=== PATIENT | male | born 1970 ===

== ENCOUNTER 2024-04-22 12:21 | Emergency (ER) | payer BC ==
--- OUTSIDE RECORDS SUMMARY | 2024-04-22 12:24 | XMS REPORT | Continuity of Care Document ---
Author Name Unknown Address [address] [facility] [place] [address] [facility] Address [address] [facility] [place] [address] Care Team Providers Care Slasher Sawyer Name Role Phone FLACO HILLIARD Attending Clinician Unavailable EDITH BENAVIDES Attending Clinician Unavailable GILLIAN KOHLI Attending Clinician Unavailable LAB90 Attending Clinician Unavailable KEYANNA VILLATORO Attending Clinician UnaKELY Shipman Attending Clinician Unavailable [facility] Attending Clinician UnavailSUJIT Todd Attending Clinician Unavailable Shauna TREVINO, Keyanna Foster Attending Clinician [phone] MD YOJANA Attending Clinician UnavailMATA Mayberry Attending Clinician UnavailELAINA Kwan Attending Clinician Unavailable Payers Payer Name Policy Type Policy Number Effective Date Expirati on Date Source [facility] 2 [id number] 2020 00:00:00 Problems Condition Name Condition Details Condition Category Status Onset Date Resolution Date Last Treatment Date Treating Clinician Comments Source Lateral epicondyli tis of right elbow Lateral epicondyli tis of right elbow Disease Active - 00:00: 00 Brandie Mezaold - Externa l Acute non-recurr ent maxillary sinusitis Acute non-recurr ent maxillary sinusitis Disease Active 2021-03 2 00:00: 00 Brandie Mezaold - Externa l Dizziness Dizziness Disease Active 2021-03-08 00:00: 00 Brandie Seybold - Externa l Prediabete s Prediabete s Disease Active 2021-03 00:00: 00 Brandie Mezaold - Externa l Seasonal allergic rhinitis due to pollen Seasonal allergic rhinitis due to pollen Disease Active 2021-03 00:00: 00 Brandie Spicerybold - Externa l Diastasis recti Diastasis recti Disease Active 2021-03 00:00: 00 Brandie Cummins - Externa l Class 2 severe obesity due to excess calories with serious comorbidit y and body mass index (BMI) of 37.0 to 37.9 in adult Class 2 severe obesity due to excess calories with serious comorbidit y and body mass index (BMI) of 37.0 to 37.9 in adult Disease Active 2021-03 00:00: 00 Brandie Mezaold - Externa l GERD (gastroeso phageal reflux disease) GERD (gastroeso phageal reflux disease) Disease Active 07-04 00:00: 00 Brandie Cummins - Externa l Essential hypertensi on Essential hypertensi on Disease Active 07-04 00:00: 00 Brandie Cummins - Externa l Snoring Snoring Disease Active 07-04 00:00: 00 Brandie Mezaold - Externa l Obesity (BMI 30-39.9) Obesity (BMI 30-39.9) Disease Active 07-04 00:00: 00 Brandie Mezaold - Externa l Hiatal hernia with GERD Hiatal hernia with GERD Disease Active 07-04 00:00: 00 Brandie Cummins - Externa l Annual physical exam Annual physical exam Disease Active 07-04 00:00: 00 Brandie Cummins - Externa l Social History Social Habit Start Date Stop Date Quantity Comments Source Gender identity 2020-09-05 17:28:14 Identifies as male gender (finding) Brandie Cummins - External Sexual orientation Kristi Cummins - External History of tobacco use Cigarette Smoker Brandie billy - External Alcoholic beverage intake 2024-03-26 00:00:00 2024-03-26 00:00:00 Current drinker of alcohol (finding) Brandie Cummins - External Tobacco use and exposure 2023-06-21 00:00:00 2023-06-21 00:00:00 Smokeless tobacco non-user Brandie Susanawenceslao - External Alcohol intake 2023-06-21 00:00:00 2023-06-21 00:00:00 Current drinker of alcohol (finding) Brandie Spicerleonardowenceslao - External Alcohol Comment 2023-06-21 00:00:00 2023-06-21 00:00:00 social Brandie Spicernayely - External History of Social function 2022-10-25 00:00:00 2022-10-25 00:00:00 Brandie Spicerleonardowenceslao - External Sex 2020-06-17 17:28:28 2020-06-17 17:28:28 Male (finding) Brandie Spicernayely - External Sex [birth year] at 1970 00:00:00 1970 00:00:00 M Brandie Maria G - External Smoking Status Start Date Stop Date Source Ex-smoker 2023-06-21 00:00:00 2023-06-21 00:00:00 Kristi cope Seleonardowenceslao - External Medications Ordered Medication Name Filled Medication Name Start Date Stop Date Current Medication? Ordering Clinician Indication Dosage Frequency Signature (SIG) Comments Components Source Pantoprazol e Sodium 40 MG oral Tablet Delayed Response 03-26 00:00: 00 Yes [id number] 40mg QD TAKE ONE (1) TABLET(S) BY MOUTH ONCE A DAY. Brandie jackson guaiFENesin -Codeine 100-10 MG/5ML oral Solution 03-26 00:00: 00 Yes [id number] 5mL Q.[id number] 3D Take 5 mL by mouth 3 times daily as needed for cough. Brandie jackson Benzonatate 200 MG oral Capsule 03-26 00:00: 00 Yes [id number] 200mg Q.[id number] 3D Take 1 capsule (200 mg total) by mouth 3 times daily as needed for cough. Brandie jackson methylPREDN ISolone 4 MG oral Tablet Therapy Pack 03-26 00:00: 00 Yes [id number] 1{judy} Take 1 judy by mouth See Admin Instructio ns Use as directed. Brandie jackson Azithromyci n 250 MG oral Tablet - 00:00: 00 04-01 05:59 :00 Yes [id number] Take 2 tablets by mouth on day 1 then 1 tablet by mouth daily for 4 days thereafter .. Brandie jackson Aprepitant 40 MG oral Capsule 2023-03 0-24 00:00: 00 03-26 00:00 :00 No TAKE ONE (1) CAPSULE(S) BY MOUTH 3 HOURS PRIOR TO SURGERY. Brandie jackson Constulose 10 GM/15ML oral Solution 2023-03 0 00:00: 00 03-26 00:00 :00 No TAKE 15 ML(S) BY MOUTH TWICE DAILY NEEDED FOR CONSTIPATI ON. Brandie jackson Ondansetron (ZOFRAN) 4 MG oral TABLET DISPERSIBLE 2023-03 00:00: 00 03-26 00:00 :00 No DISSOLVE ONE (1) TABLET(S) BY MOUTH EVERY FOUR TO SIX HOURS NEEDED FOR NAUSEA. Brandie jackson Tramadol HCl (ULTRAM) 50 MG oral Tablet 2023-03 00:00: 00 03-26 00:00 :00 No TAKE ONE (1) TABLET BY MOUTH EVERY 4-6 HOURS NEEDED FOR PAIN (MAX 4 DAILY). Brandie jackson Pantoprazol e Sodium 40 MG oral Tablet Delayed Response 7- 00:00: 00 03-26 00:00 :00 No [id number] 40mg QD Take 1 tablet (40 mg total) by mouth daily. Brandie jackson Pantoprazol e Sodium 40 MG oral Tablet Delayed Response 4-17 00:00: 00 Yes [id number] 40mg Take 1 tablet (40 mg total) by mouth daily. Brandie jackson Tirzepatide -Weight Management 2.5 MG/0.5ML subcutaneou s Solution Auto-inject or 4-17 00:00: 00 03-26 00:00 :00 No [id number] 104 2.5mg Q1W Inject 0.5 mL (2.5 mg total) into the skin once a week. Brandie jackson Lisinopril 20 MG oral Tablet 17 00:00: 00 03-26 00:00 :00 No [id number] 20mg QD Take 1 tablet (20 mg total) by mouth daily. Brandie jackson Lisinopril 20 MG oral Tablet -16 00:00: 00 07-05 00:00 :00 No [id number] 20mg Take 1 tablet (20 mg total) by mouth daily. Brandie jackson Lansoprazol e 30 MG oral Delayed Release Capsule 3-15 00:00: 00 07-05 00:00 :00 No [id number] 30mg Take 1 capsule (30 mg total) by mouth daily. Brandie jackson Semaglutide -ELI-Stevie ght Management 1 MG/0.5ML Subcutaneou s Solution Auto-inject or - 00:00: 00 07-03 00:00 :00 No [id number] 1mg Inject 1 mg into the skin once a week Brandie jackson Pseudoeph-B romphen-DM 30-2-10 MG/5ML oral Syrup 09-13 00:00: 00 Yes [id number] 10mL Q.25D Take 10 mL by mouth 4 times daily as needed Brandie jackson Azithromyci n 250 MG oral Tablet 09-13 00:00: 00 09-19 04:59 :00 No [id number] Take 2 tablets by mouth on day 1 then 1 tablet by mouth daily for 4 days thereafter . Brandie jackson Semaglutide -WEGOVY-Stevie ght Management 1 MG/0.5ML Subcutaneou s Solution Auto-inject or 12 00:00: 00 Yes [id number] 104 1mg Inject 1 mg into the skin once a week Brandie jackson Semaglutide (1 mg/dose) 4 mg/3 mL SQ Solution Pen-Injecto r 06-22 00:00: 00 Yes [id number] 104 1mg Inject 1 mg into the skin once a week Brandie jackson Lansoprazol e 30 MG oral Delayed Release Capsule 06-22 00:00: 00 Yes [id number] 30mg Take 1 capsule (30 mg total) by mouth daily Brandie jackson Lisinopril 20 MG oral Tablet 06-22 00:00: 00 07-04 00:00 :00 No [id number] 20mg Take 1 tablet (20 mg total) by mouth daily Brandie jackson Lansoprazol e 30 MG oral Delayed Release Capsule 2021-03 00:00: 00 06-22 00:00 :00 No 30mg Take 1 capsule (30 mg total) by mouth daily Brandie jackson Semaglutide (0.25 or 0.5 mg/dose) 2 mg/1.5 mL SQ Solution Pen-Injecto r 2021-03 00:00: 00 Yes [id number] 104 .5mg Inject 0.5 mg into the skin once a week Brandie jackson Semaglutide (0.25 or 0.5 mg/dose) 2 mg/1.5 mL SQ Solution Pen-Injecto r 2021-03 00:00: 00 06-22 00:00 :00 No [id number] 104 .5mg Inject 0.5 mg into the skin once a week Brandie jackson Amoxicillin -Pot Clavulanate 875-125 MG oral Tablet 2021-03 00:00: 00 06-21 00:00 :00 No [id number] 1{tbl} Take 1 tablet by mouth 2 times daily Brandie jackson Benzonatate (Tessalon Perles) 100 MG oral Capsule 2021-03 00:00: 00 06-21 00:00 :00 No [id number] 100mg Q.[id number] 3D Take 1 capsule (100 mg total) by mouth 3 times daily as needed for cough Brandie jackson Tramadol HCl 50 MG oral Tablet 2021-03 00:00: 00 06-21 00:00 :00 No TAKE ONE (1) TO TWO (2) TABLET(S) BY MOUTH EVERY SIX HOURS FOR PAIN. Brandie jackson Semaglutide (0.25 or 0.5 mg/dose) 2 mg/1.5 mL SQ Solution Pen-Injecto r 2021-03 00:00: 00 Yes [id number] 104 .25mg Inject 0.25 mg into the skin once a week Brandie jackson Lisinopril 20 MG oral Tablet 2021-03 00:00: 00 06-22 00:00 :00 No [id number] 20mg Take 1 tablet (20 mg total) by mouth daily Brandie jackson FLUTICASONE PROPIONATE, NASAL, 50 MCG/ACT nasal Suspension 2021-03 00:00: 00 06-22 00:00 :00 No [id number] 50ug Use 1 spray (50 mcg total) in each nostril daily Brandie jackson Fexofenadin e (MINNIE) 180 MG oral Tablet 2021-03 00:00: 00 06-21 00:00 :00 No [id number] 180mg Take 1 tablet (180 mg total) by mouth daily Brandie jackson Semaglutide (0.25 or 0.5 mg/dose) 2 mg/1.5 mL SQ Solution Pen-Injecto r 2021-03 00:00: 00 02-23 00:00 :00 No [id number] 104 .25mg Inject 0.25 mg into the skin once a week Brandie jackson LISINOPRIL- HCTZ 20-12.5 MG oral Tablet 2021-03 00:00: 00 01-26 00:00 :00 No TAKE 1 TABLET BY MOUTH EVERY DAY Brandie jackson Lansoprazol e 30 MG oral Delayed Release Capsule 09-28 00:00: 00 Yes TAKE 1 CAPSULE BY MOUTH EVERY DAY Brandie jackson Amoxicillin -Pot Clavulanate 875-125 MG oral Tablet 2020-03 0-22 00:00: 00 Yes [id number] 1{tbl} Take 1 tablet by mouth 2 times daily Brandie Cummins Etodolac 500 MG oral Tablet 2020-03 0-12 00:00: 00 Yes Brandie Cummins methylPREDN ISolone 4 MG oral Tablet Therapy Pack 2020-03 0-11 00:00: 00 Yes Brandie Cummins LISINOPRIL- HCTZ 20-12.5 MG oral Tablet 8-30 00:00: 00 Yes TAKE 1 TABLET BY MOUTH EVERY DAY Brandie Cummins Lansoprazol e 30 MG oral Delayed Release Capsule 6-07 00:00: 00 Yes 30mg Take 1 capsule (30 mg total) by mouth daily Brandie Cummins Immunizations Ordered Immunization Name Filled Immunization Name Date Status Comments Source Covid-19 Vaccine ([email or web address]), Mrna-lnp, Ned Protein, Pf, 30mcg/0.3ml,IM 2020-06-07 00:00:00 Completed Brandie Cummins - External Covid-19 Vaccine ([email or web address]), Mrna-lnp, Ned Protein, Pf, 30mcg/0.3ml,IM 2020-06-07 00:00:00 [facility] Vacc[facility] ([email or web address]), Mrna-lnp, Ned Protein, Pf, 30mcg/0.3ml,IM 2020-06-07 00:00:00 [facility] Covid-19 Vaccine ([email or web address]), Mrna-lnp, Ned Protein, Pf, 30mcg/0.3ml,IM 2020-06-07 00:00:00 Completed Brandie Cummins Covid-19 Vaccine ([email or web address]), Mrna-lnp, Ned Protein, Pf, 30mcg/0.3ml,IM 2020-06-07 00:00:00 Completed Brandie [facility] - External Covid-19 Vaccine ([email or web address]), Mrna-lnp, Ned Protein, Pf, 30mcg/0.3ml,IM 2020-06-07 00:00:00 [facility] Vacc[facility] ([email or web address]), Mrna-lnp, Ned Protein, Pf, 30mcg/0.3ml,IM 2020-05-17 00:00:00 Completed Brandie Seybold - External Covid-19 Vaccine (Pfizer), Mrna-lnp, Ned Protein, Pf, 30mcg/0.3ml,IM 2020-05-17 00:00:00 Completed Brandie Seybold - External Covid-19 Vaccine (Pfizer), Mrna-lnp, Ned Protein, Pf, 30mcg/0.3ml,IM 2020-05-17 00:00:00 Completed Brandie Seybold - External Covid-19 Vaccine (Pfizer), Mrna-lnp, Ned Protein, Pf, 30mcg/0.3ml,IM 2020-05-17 00:00:00 Completed Brandie Seybold Covid-19 Vaccine (Pfizer), Mrna-lnp, Ned Protein, Pf, 30mcg/0.3ml,IM 2020-05-17 00:00:00 Completed Brandie Seybold - External Covid-19 Vaccine (Pfizer), Mrna-lnp, Ned Protein, Pf, 30mcg/0.3ml,IM 2020-05-17 00:00:00 Completed Brandie Seybold - External Covid-19 Vaccine (Pfizer), Mrna-lnp, Ned Protein, Pf, 30mcg/0.3ml,IM 2020-05-02 00:00:00 Completed Brandie Seybold - External Covid-19 Vaccine (Pfizer), Mrna-lnp, Ned Protein, Pf, 30mcg/0.3ml,IM 2020-05-02 00:00:00 Completed Brandie Seybold - External Covid-19 Vaccine (Pfizer), Mrna-lnp, Ned Protein, Pf, 30mcg/0.3ml,IM 2020-05-02 00:00:00 Completed Brandie Seybold - External Covid-19 Vaccine (Pfizer), Mrna-lnp, Ned Protein, Pf, 30mcg/0.3ml,IM 2020-05-02 00:00:00 Completed Brandie Seybold Covid-19 Vaccine (Pfizer), Mrna-lnp, Ned Protein, Pf, 30mcg/0.3ml,IM 2020-05-02 00:00:00 Completed Brandie Seybold - External Covid-19 Vaccine (Pfizer), Mrna-lnp, Ned Protein, Pf, 30mcg/0.3ml,IM 2020-05-02 00:00:00 Completed Brandie Seybold - External Tdap- (Boostrix, Adacel) 2017-05-12 00:00:00 Completed Brandie Seybold - External Tdap- (Boostrix, Adacel) 2017-05-12 00:00:00 Completed Brandie Seybold - External Tdap- (Boostrix, Adacel) 2017-05-12 00:00:00 Completed Brandie Seybold - External Tdap- (Boostrix, Adacel) 2017-05-12 00:00:00 Completed Brandie ybold Tdap- (Boostrix, Adacel) 2017-05-12 00:00:00 Completed Brandie Seybold - External Tdap- (Boostrix, Adacel) 2017-05-12 00:00:00 Completed Brandie leonardoold - External Covid-19 Vaccine ([email or web address]), Mrna-lnp, Ned Protein, Pf, 30mcg/0.3ml,IM Unknown Completed Brandie ybol d - External Tdap- (Boostrix, Adacel) Unknown Completed Brandie ybold - External Covid-19 Vaccine (Pfizer), Mrna-lnp, Ned Protein, Pf, 30mcg/0.3ml,IM Unknown Completed Brandie ybol d - External Tdap- (Boostrix, Adacel) Unknown Completed Brandie ybold - External Covid-19 Vaccine ([email or web address]), Mrna-lnp, Ned Protein, Pf, 30mcg/0.3ml,IM Unknown Completed Brandie ybol d - External Tdap- (Boostrix, Adacel) Unknown Completed Brandie ybold - External Vital Signs Vital Name Observation Time Observation Value Comments S ource Systolic blood pressure 2024-03-26 21:58:00 134 mm[Hg] Brandie Rocha ld - External Diastolic blood pressure 2024-03-26 21:58:00 80 mm[Hg] Brandie Rocha ld - External Heart rate 2024-03-26 21:58:00 74 /min Ivanna Cummins - External Body temperature 2024-03-26 21:58:00 36 Zaria Brandie Seybold - External Respiratory rate 2024-03-26 21:58:00 15 /min Brandie Seybold - External Body height 2024-03-26 21:58:00 182.9 cm Lucrecia ey Seybold - External Body weight 2024-03-26 21:58:00 104.599 kg Lucrecia ey Seybold - External BMI 2024-03-26 21:58:00 31.27 kg/m2 Lucrecia ey Seybold - External Oxygen saturation in Arterial blood by Pulse oximetry 2024-03-26 21:58:00 99 /min Brandie Seybo ld - External Systolic blood pressure 2023-07-06 16:14:00 122 mm[Hg] Brandie Seybo ld - External Diastolic blood pressure 2023-07-06 16:14:00 65 mm[Hg] Brandie Seybo ld - External Heart rate 2023-07-06 16:14:00 90 /min Kelse y Seybold - External Body temperature 2023-07-06 16:14:00 36.06 Zaria Brandie Seybold - External Respiratory rate 2023-07-06 16:14:00 22 /min Brandie Seybold - External Body height 2023-07-06 16:14:00 182.9 cm Lucrecia ey Seybold - External Body weight 2023-07-06 16:14:00 127.007 kg Lucrecia ey Seybold - External BMI 2023-07-06 16:14:00 37.97 kg/m2 Lucrecia ey Seybold - External Oxygen saturation in Arterial blood by Pulse oximetry 2023-07-06 16:14:00 97 /min Brandie Seybo ld - External Systolic blood pressure 2022-10-25 19:49:00 120 mm[Hg] Brandie Seybo ld - External Diastolic blood pressure 2022-10-25 19:49:00 85 mm[Hg] Brandie Seybo ld - External Heart rate 2022-10-25 19:49:00 71 /min Kelse y Seybold - External Body temperature 2022-10-25 19:49:00 35.94 Zaria Brandie Seybold - External Respiratory rate 2022-10-25 19:49:00 15 /min Brandie Seybold - External Body height 2022-10-25 19:49:00 182.9 cm Lucrecia ey Seybold - External Body weight 2022-10-25 19:49:00 121.564 kg Lucrecia ey Seybold - External BMI 2022-10-25 19:49:00 36.35 kg/m2 Lucrecia ey Seybold - External Oxygen saturation in Arterial blood by Pulse oximetry 2022-10-25 19:49:00 100 /min Brandie Seybo ld - External Systolic blood pressure 2022-09-13 13:23:00 134 mm[Hg] Brandie Seybo ld - External Diastolic blood pressure 2022-09-13 13:23:00 79 mm[Hg] Brandie Seybo ld - External Heart rate 2022-09-13 13:23:00 87 /min Kelse y Seybold - External Body temperature 2022-09-13 13:23:00 37.06 Zaria Brandie Seybold - External Respiratory rate 2022-09-13 13:23:00 14 /min Brandie Seybold - External Body height 2022-09-13 13:23:00 182.9 cm Lucrecia ey Seybold - External Body weight 2022-09-13 13:23:00 120.657 kg Lucrecia ey Seybold - External BMI 2022-09-13 13:23:00 36.08 kg/m2 Lucrecia ey Seybold - External Oxygen saturation in Arterial blood by Pulse oximetry 2022-09-13 13:23:00 99 /min Brandie Seybo ld - External Systolic blood pressure 2022-06-22 15:46:00 122 mm[Hg] Brandie Seybo ld - External Diastolic blood pressure 2022-06-22 15:46:00 84 mm[Hg] Brandie Seybo ld - External Heart rate 2022-06-22 15:46:00 87 /min Kelse y Seybold - External Body temperature 2022-06-22 15:46:00 36.06 Zaria Brandie Seybold - External Respiratory rate 2022-06-22 15:46:00 14 /min Brandie Seybold - External Body height 2022-06-22 15:46:00 182.9 cm Lucrecia ey Seybold - External Body weight 2022-06-22 15:46:00 120.929 kg Lucrecia ey Seybold - External BMI 2022-06-22 15:46:00 36.16 kg/m2 Lucrecia ey Seybold - External Oxygen saturation in Arterial blood by Pulse oximetry 2022-06-22 15:46:00 98 /min Brandie Seybo ld - External Body temperature 2022-02-23 16:02:00 36.5 Zaria Brandie Seybold - External Respiratory rate 2022-02-23 16:02:00 16 /min Brandie Seybold - External Body height 2022-02-23 16:02:00 182.9 cm Lucrecia ey Seybold - External Body weight 2022-02-23 16:02:00 120.203 kg Lucrecia ey Seybold - External BMI 2022-02-23 16:02:00 35.94 kg/m2 Lucrecia ey Seybold - External Systolic blood pressure 2022-02-23 16:02:00 118 mm[Hg] Brandie Seybo ld - External Diastolic blood pressure 2022-02-23 16:02:00 78 mm[Hg] Brandie Seybo ld - External Heart rate 2022-02-23 16:02:00 114 /min Germanse y Seybold - External Systolic blood pressure 2022-01-26 16:43:00 115 mm[Hg] Brandie Seybo ld - External Diastolic blood pressure 2022-01-26 16:43:00 73 mm[Hg] Brandie Seybo ld - External Heart rate 2022-01-26 16:43:00 91 /min Kelse y Seybold - External Body temperature 2022-01-26 16:43:00 36.11 Zaria Brandie Seybold - External Respiratory rate 2022-01-26 16:43:00 14 /min Brandie Seybold - External Body height 2022-01-26 16:43:00 182.9 cm Lucrecia ey Seybold - External Body weight 2022-01-26 16:43:00 121.836 kg Lucrecia ey Seybold - External BMI 2022-01-26 16:43:00 36.43 kg/m2 Lucrecia ey Seybold - External Oxygen saturation in Arterial blood by Pulse oximetry 2022-01-26 16:43:00 99 /min Brandie Seybo ld - External Systolic blood pressure 2021-01-09 13:47:00 130 mm[Hg] Brandie Mezao ld Diastolic blood pressure 2021-01-09 13:47:00 80 mm[Hg] Brandie Mezao ld Heart rate 2021-01-09 13:47:00 86 /min Ivanna Cummins Body temperature 2021-01-09 13:47:00 37.06 Zaria Brandie Cummins Body weight 2021-01-09 13:47:00 120.657 kg Lucrecia Cummins BMI 2021-01-09 13:47:00 36.08 kg/m2 Lucrecia Mezawenceslao Procedures Procedure Date / Time Performed Performing Clinicia n Source LS RAPID FLU ASSAY-LAB TEST 2024-03-26 22:29:00 Flaco Hilliard - External Encounters Start Date/Time End Date/Time Encounter Type Admission Type Attending [facility] Care Department Encounter ID Source 2024-03-26 16:00:00 2024-03-26 16:00:00 Outpatient FLACO HILLIARD [id number] Brandie Susanawenceslao 2024-03-26 00:00:00 2024-03-26 00:00:00 Outpatient EDITH BENAVIDES [id number] Brandie wenceslao 2023-10-09 00:00:00 2023-10-09 00:00:00 Outpatient EDITH BENAVIDES [id number] Brandie nayely 2023-09-28 14:45:00 2023-09-28 14:45:00 Outpatient EDITH BENAVIDES [id number] Brandie wenceslao 2023-08-22 00:00:00 2023-08-22 00:00:00 Outpatient GILLIAN KOHLI [id number] Brandie ybwenceslao 2023-07-08 00:00:00 2023-07-08 00:00:00 Outpatient EDITH BENAVIDES [id number] Brandie ybwenceslao 2023-07-08 00:00:00 2023-07-08 00:00:00 Outpatient EDITH BENAVIDES [id number] Brandie [facility] 2023-07-08 00:00:00 2023-07-08 00:00:00 Outpatient PREZAEDITH Mantilla BRANDIE LORD [id number] Brandie Spicerybwenceslao 2023-07-07 10:10:00 2023-07-07 10:10:00 Outpatient LAB90 BRANDIE LORD [id number] Brandie Spicerybwenceslao 2023-07-06 11:15:00 2023-07-06 11:15:00 Outpatient PREZAAnnalee, EDITH BRANDIE LORD [id number] Brandie Spicerybwenceslao 2023-07-05 00:00:00 2023-07-05 00:00:00 Outpatient PREZAS, EDITH BRANDIE LORD [id number] Brandie Spicerybwenceslao 2023-06-30 14:45:00 2023-06-30 14:45:00 Outpatient SHAUNA, KEYANNAVARSHA LORD [id number] Brandie Spicerybwenceslao 2023-06-24 00:00:00 2023-06-24 00:00:00 Outpatient REN, KELY BRANDIE LORD [id number] [facility] 2023-06-23 00:00:00 2023-06-23 00:00:00 Outpatient REN, KELYRema LORD [id number] [facility] 2023-06-22 08:10:00 2023-06-22 08:10:00 Outpatient LABBrady BRANDIE LORD [id number] Brandie Spicerybwenceslao 2023-06-22 08:00:00 2023-06-22 08:00:00 Outpatient HUMBERTORODY BRANDIE LORD [id number] [facility] 2023-06-22 00:00:00 2023-06-22 00:00:00 Outpatient REN, KELY LORD [id number] [facility] 2023-06-21 14:00:00 2023-06-21 14:00:00 Outpatient REN, KELY LORD [id number] [facility] 2023-06-03 00:00:00 2023-06-03 00:00:00 Outpatient PREZAS, EDITH LORD [id number] [facility] 2023-05-20 11:00:00 2023-05-20 11:00:00 Outpatient PREZAS, EDITH LORD BRANDIE [id number] Brandie [facility] 2023-04-10 00:00:00 2023-04-10 00:00:00 Outpatient PREZAS, EDITH LORD BRANDIE [id number] Brandie [facility] 2022-12-03 00:00:00 2022-12-03 00:00:00 Outpatient PREZAS, EDITH LORD BRANDIE [id number] [facility] 2022-10-25 14:30:00 2022-10-25 14:30:00 Outpatient PREZAS, EDITH LORD BRANDIE [id number] Brandie [facility] 2022-09-22 08:15:00 2022-09-22 08:15:00 Outpatient PREZAS, EDITH LORD BRANDIE [id number] [facility] 2022-09-13 08:15:00 2022-09-13 08:15:00 Outpatient SHAUNAMATEUS BENNETTVARSHA LORD BRANDIE [id number] [facility] 2022-08-30 00:00:00 2022-08-30 00:00:00 Outpatient PREZAS, EDITH LORD BRANDIE [id number] [facility] 2022-08-30 00:00:00 2022-08-30 00:00:00 Outpatient PREZAS, EDITH LORD BRANDIE [id number] [facility] 2022-06-24 00:00:00 2022-06-24 00:00:00 Outpatient PREZAS, EDITH LORD BRANDIE [id number] [facility] 2022-06-22 11:20:00 2022-06-22 11:20:00 Outpatient LABBrady BRANDIE LORD [id number] [facility] 2022-06-22 10:45:00 2022-06-22 10:45:00 Outpatient PREZAS, EDITH LORD BRANDIE [id number] [facility] 2022-03-23 10:00:00 2022-03-23 10:00:00 Outpatient PREZAS, EDITH BRANDIE LORD [id number] [facility] 2022-03-09 00:00:00 2022-03-09 00:00:00 Outpatient SUJIT MALONEYDANGELO LORD [id number] [facility] 2022-02-23 10:15:00 2022-02-23 10:15:00 Outpatient PREZAEDITH Mantilla BRANDIE [id number] [facility] 2022-02-23 08:15:00 2022-02-23 08:15:00 Outpatient PREZAEDITH MantillaDANGELO LORD [id number] [facility] 2022-02-09 08:45:00 2022-02-09 08:45:00 Outpatient LAB90 BRANDIE BRANDIE [id number] [facility] 2022-02-04 13:35:00 2022-02-04 13:35:00 Outpatient LAB90 BRANDIE LORD [id number] [facility] 2022-01-26 10:45:00 2022-01-26 10:45:00 [facility]DANGELO [facility] [id number] [facility]00 2022-01-26 09:00:00 Outpatient PREZAS, EDITH COOPERDANGELO LORD [id number] [facility]ie [facility] 2021-04-21 00:00:00 2021-04-21 00:00:00 Outpatient SUJIT MALONEY BRANDIE LORD [id number] [facility] 2021-03-23 14:15:00 2021-03-23 14:15:00 Outpatient SHAUNAKEYANNA [id number] Brandie [facility] 2021-03-23 14:15:00 2021-03-23 14:15:00 Outpatient SHAUNAKEYANNA [id number] Brandie [facility] 2021-01-09 08:43:50 2021-01-09 09:13:50 Office Visit Keyanna Villatoro [place] [id number] Brandie [facility] 2020-12-29 00:00:00 2020-12-29 00:00:00 Outpatient MD BRANDIE FORTUNE [id number] Brandie Cummins 2020-11-07 00:00:00 2020-11-07 00:00:00 Outpatient MATA SEGAL [id number] Brandie Cummins 2020-10-23 08:30:00 2020-10-23 08:30:00 Outpatient MATA SEGAL [id number] Brandie Cummins 2020-07-24 00:00:00 2020-07-24 00:00:00 Outpatient ELAINA ADRIAN [id number] Brandie Cummins
--- NOTE | 2024-04-22 13:20 | RAD REPORT ---
EXAMINATION: CT ABDOMEN AND PELVIS stone protocol WITHOUT CONTRAST CLINICAL INDICATION: Male, 54 years old.FLANK PAIN TECHNIQUE: CT abdomen and pelvis was performed with stone protocol, without IV contrast, as per depar tment protocol. Axial, sagittal and coronal reconstructions were obtained. One or more of the following dose reduction techniques were used: Automated exposure control, adjustment of the mA and/o r kV according to the patient size, and/or iterative reconstruction. Unless otherwise specified, incidental findings do not require dedicated imaging follow-up. AL2243. IV CONTRAST: Not administered. COMPARISON: None FINDINGS: The lack of intravenous contrast limits the sensitivity of this exam for evaluation of solid visceral organs, vascular structures, and retroperitoneum. LOWER CHEST: No acute process identified.No significant pericardial effusion. Mild circumferential th ickening of the distal esophagus which could reflect esophagitis. UPPER GI: Louie-en-Y gastric bypass. LIVER: No significant focal abnormality. GALLBLADDER/BILE DUCTS: No biliary ductal dilatation.? PANCREAS: No mass, ductal dilation, or jazlyn-pancreatic fluid. SPLEEN: Unremarkable. ADRENALS: No adrenal masses. KIDNEYS AND URETERS: Mild left-sided hydroureteronephrosis.Punctate 2 mm stone at the left UVJ. Tiny bilateral renal calculi ABDOMINAL AORTA AND OTHER VESSELS: Mild atherosclerotic changes. PERITONEUM: No abnormal free fluid. No free air. LYMPH NODES: No pathologic lymphadenopathy. ABDOMINAL WALL: Small fat containing umbilical hernia. SMALL BOWEL/COLON: Small bowel has normal course and caliber. No colonic wall thickening or pericolon ic inflammatory changes.Normal appendix. Moderate diverticulosis without diverticulitis. URINARY BLADDER: Underdistended but grossly unremarkable. REPRODUCTIVE ORGANS: No pathologic process. MUSCULOSKELETAL: No acute or suspicious osseous abnormality. ADDITIONAL FINDINGS: None. IMPRESSION: Mild left-sided hydroureteronephrosis secondary to a 2 mm stone at the left UVJ.
[2024-04-22 14:28] LABS: Specific Gravity > 1.030 (1.005-1.030); Sqamous Epithelial None Seen /HPF (None Seen); Urine Bacteria None Seen /HPF (<20); Urine Bilirubin NEGATIVE (Negative); Urine Blood 3+ (OVER) (Negative); Urine Clarity Extremely Turbid (Clear); Urine Color Yellow (Yellow); Urine Crystals Unidentified Few /HPF (None Seen); Urine Culture Reflex Order REFLEXED; Urine Glucose NEGATIVE (Negative); Urine Ketones TRACE (Negative); Urine Microscopic Reflex YN ORDER UMIC; Urine Mucus 4+ /HPF (None Seen); Urine Nitrite NEGATIVE (Negative); Urine Protein 1+ (Negative); Urine RBC >50 /HPF (None Seen); Urine Urobilinogen 1+ (Normal); Urine WBC 20-50 /HPF (<5); Urine WBC Clump Few /HPF (None Seen); Urine Yeast (Budding) Occasional /HPF (None Seen); Urine pH 5.5 (5.0-7.0)
[2024-04-22] MEDS ORDERED: MORPHINE 4 MG/ML SYR ONE (14:46)
[2024-04-22] MEDS ORDERED: TAMSULOSIN 0.4 MG SR CAP ONE (14:46)
[2024-04-22] MEDS ORDERED: MAGNESIUM SULFATE 1 gm IVPB 1 GM/100 ML BAG IV ONE (14:47)
[2024-04-22 15:21] LABS: Absolute Monocytes 0.4 K/uL (0.1-1.3); Basophils % 0.5 % (0-1.3); Eosinophils % 0.3 % (0-4.4); Hematocrit 41.4 % (39.6-49.0); Hemoglobin 14.8 g/dL (13.6-17.9); Lymphocytes % 10.1 % (15.3-44.8); MCHC 35.7 g/dL (32.0-36.0); MPV 8.3 fL (7.6-11.3); Monocytes % 4.4 % (3.3-12.3); Neutrophils % 84.7 % (41.7-73.7); Platelets 241 thou/uL (152-406); RBC Red Blood Cell Count 4.75 M/uL (4.33-5.43); Red Cell Distribution Width 13.5 % (12.1-15.2)
[2024-04-22 15:43] LABS: Potassium 4.1 mEq/L (3.5-5.1)
[2024-04-22 15:44] LABS: Albumin 3.6 g/dL (3.4-5.0); Albumin/Globulin Ratio 1.1 (1.1-1.8); Bilirubin Total 0.9 mg/dL (0.2-1.0); Globulin 3.4 g/dL (2.3-3.5)
--- NOTE | 2024-04-22 16:34 | ER ---
Nurse's Notes [facility] Name: Clemente Lange Jr Age: 54 yrs Sex: Male : 1970 Arrival Date: 04/22/2024 Time: 12:21 Bed 6 Private MD: Diagnosis: Calculus of ureter Presentation: 04/22 13:09 Chief complaint: Patient states: Left flank pain onset this morning. Pt states that he cm10 is having difficultly urinating. pt also reports nausea. Pt sent to the ER from urgent care. pt received Toradol and nausea medicine. Coronavirus screen: Client denies travel out of the [place] in the last 14 days. Ebola Screen: Patient denies travel to an Ebola-affected area in the 21 days before illness onset. Initial Sepsis Screen: Does the patient meet any 2 criteria? No. Patient's initial sepsis screen is negative. Does the patient have a suspected source of infection? No. Patient's initial sepsis screen is negative. Risk Assessment: Do you want to hurt yourself or someone else? Patient reports no desire to harm self or others. Onset of symptoms was April 22, 2024. 13:09 Method Of Arrival: Wheelchair cm10 13:09 Acuity: BENTLEY 3 cm10 Triage Assessment: 13:11 General: Appears in no apparent distress. uncomfortable, Behavior is calm, cooperative. cm10 Pain: Complains of pain in left flank Pain radiates to left lower quadrant Pain currently is 8 out of 10 on a pain scale. Neuro: No deficits noted. Level of Consciousness is awake, alert, obeys commands, Oriented to person, place, time, situation, Appropriate for age. Respiratory: No deficits noted. Airway is patent Respiratory effort is even, unlabored, Respiratory pattern is regular, symmetrical. GI: Reports nausea. Historical: - Allergies: 13:11 No Known Allergies; cm10 - PMHx: 13:11 Hypertension; cm10 - PSHx: 13:11 Gastric Bypass; cm10 - Immunization history:: Adult Immunizations up to date. - Infectious Disease History:: Denies. - Social history:: Smoking status: Patient denies any tobacco usage or history of. - Family history:: not pertinent. - Hospitalizations: : No recent hospitalization is reported. Screenin:00 [facility] ED Fall Risk Assessment (Adult) History of falling in the last 3 months, bp including since admission No falls in past 3 months (0 pts) Confusion or Disorientation No (0 pts) Intoxicated or Sedated No (0 pts) Impaired Gait No (0 pts) Mobility Assist Device Used No (0 pt) Altered Elimination No (0 pt) Score/Fall Risk Level 0 - 2 = Low Risk Oriented to surroundings. Abuse screen: Denies threats or abuse. Denies injuries from another. Nutritional screening: No deficits noted. Tuberculosis screening: No symptoms or risk factors identified. Assessment: 13:11 General: Appears in no apparent distress. uncomfortable, Behavior is cooperative, bp appropriate for age, anxious. Pain: Complains of pain in left flank. Neuro: No deficits noted. Cardiovascular: No deficits noted. Respiratory: No deficits noted. GI: Bowel sounds present X 4 quads. Abd is soft X 4 quads. : No signs and/or symptoms were reported regarding the genitourinary system. EENT: No deficits noted. Derm: No deficits noted. Musculoskeletal: No deficits noted. 15:00 Reassessment: Patient appears in no apparent distress at this time. Patient is alert, bp oriented x 3, equal unlabored respirations, skin warm/dry/pink. 16:00 Reassessment: Patient appears in no apparent distress at this time. Patient is alert, bp oriented x 3, equal unlabored respirations, skin warm/dry/pink. 16:42 Reassessment: Patient appears in no apparent distress at this time. Patient is alert, ld1 oriented x 3, equal unlabored respirations, skin warm/dry/pink. Vital Signs: 13:09 BP 140 / 99; Pulse 63; Resp 15; Temp 97(TE); Pulse Ox 100% on R/A; Weight 98.88 kg; cm10 Height 6 ft. 0 in. ; Pain 8/10; 16:00 BP 137 / 89; Pulse 75; Resp 16; Pulse Ox 100% ; bp 13:09 Body Mass Index 29.57 (98.88 kg, 182.88 cm) cm10 13:09 Pain Scale: Adult cm10 ED Course: 12:24 Patient arrived in ED. al6 12:28 Jacinto Kahn MD is Attending Physician. rn 13:04 CT Stone Protocol In Process Unspecified. EDMS 13:11 Triage completed. cm10 13:11 Arm band placed on right wrist. Patient placed in an exam room, on a stretcher. cm10 14:41 Anurag Dejesus, RN is Primary Nurse. bp 16:00 Patient has correct armband on for positive identification. bp 16:00 Initial lab(s) drawn, by me, sent to lab. Inserted saline lock: 22 gauge in right bp forearm, using aseptic technique. Blood collected. Flushed with 10 mL NS. 16:43 No provider procedures requiring assistance completed. IV discontinued, intact, ld1 bleeding controlled, No redness/swelling at site. Administered Medications: 14:57 Drug: morphine IVP or IV 4 mg IVP once over 4 mins Route: IVP; Infused Over: 4 mins; bp Site: right forearm; 16:17 Follow up: Response: No adverse reaction bp 14:57 Drug: Magnesium Sulfate IVPB 1 grams IVPB once over 1 hrs Route: IVPB; Infused Over: 1 bp hrs; Site: right forearm; 14:57 Drug: Flomax PO 0.4 mg PO once Route: PO; bp 16:17 Follow up: Response: No adverse reaction bp Medication: 16:00 VIS not applicable for this client. bp Outcome: 16:33 Discharge ordered by . rn 16:43 Discharged to home ambulatory, ld1 16:43 Condition: stable 16:43 Discharge instructions given to patient, Instructed on discharge instructions, follow up and referral plans. medication usage, Demonstrated understanding of instructions, follow-up care, medications, Prescriptions given X 3, 16:43 Patient left the ED. ld1 Signatures: Dispatcher [employer] EDMS Jacinto Kahn MD MD rn Peltier, Brian, RN RN Alyse Raya RN RN ld1 Candace Ji RN RN cm10 Eladia Tomlinson6
--- NOTE | 2024-04-22 16:34 | EDPHYS ---
Physician Documentation [facility] Name: Clemente Lange Jr Age: 54 yrs Sex: Male : 1970 Arrival Date: 04/22/2024 Time: 12:21 Bed 6 Private MD: ED Physician Jacinto Kahn HPI: 04/22 14:51 This 54 yrs old Male presents to ER via Wheelchair with complaints of Possible Kidney rn Stone. 14:51 The patient complains of pain in the left mid back. Onset: The symptoms/episode rn began/occurred this morning. Modifying factors: The symptoms are alleviated by nothing. the symptoms are aggravated by nothing. Severity of pain: At its worst the pain was moderate in the emergency department the pain is unchanged. The patient has not experienced similar symptoms in the past. Patient reports left flank pain that radiates to groin, no history of kidney stone, no trauma, does report difficulty urinating but no hematuria.. Historical: - Allergies: 13:11 No Known Allergies; cm10 - PMHx: 13:11 Hypertension; cm10 - PSHx: 13:11 Gastric Bypass; cm10 - Immunization history:: Adult Immunizations up to date. - Infectious Disease History:: Denies. - Social history:: Smoking status: Patient denies any tobacco usage or history of. - Family history:: not pertinent. - Hospitalizations: : No recent hospitalization is reported. ROS: 14:51 Constitutional: Negative for fever, chills, and weight loss, Cardiovascular: Negative rn for chest pain, palpitations, and edema, Respiratory: Negative for shortness of breath, cough, wheezing, and pleuritic chest pain, Abdomen/GI: Positive for nausea, negative for abdominal pain Back: Positive for left flank pain : Positive for difficulty urinating Exam: 14:51 Constitutional: This is a well developed, well nourished patient who is awake, alert, rn appears uncomfortable Cardiovascular: Regular rate and rhythm. No pulse deficits. Respiratory: No increased work of breathing, no retractions or nasal flaring. Abdomen/GI: Soft, nontender Back: No spinal tenderness. No costovertebral tenderness. Full range of motion. Vital Signs: 13:09 BP 140 / 99; Pulse 63; Resp 15; Temp 97(TE); Pulse Ox 100% on R/A; Weight 98.88 kg; cm10 Height 6 ft. 0 in. ; Pain 8/10; 16:00 BP 137 / 89; Pulse 75; Resp 16; Pulse Ox 100% ; bp 13:09 Body Mass Index 29.57 (98.88 kg, 182.88 cm) cm10 13:09 Pain Scale: Adult cm10 MDM: 12:28 Medical Screening Exam initiated rn 16:32 Differential diagnosis: nephrolithiasis, UTI. Data reviewed: vital signs, nurses notes, management intern test result(s), radiologic studies, CT scan, and as a result, I will discharge patient. Counseling: I had a detailed discussion with the patient and/or guardian regarding the historical points, exam findings, and any diagnostic results supporting the discharge/admit diagnosis, lab results, radiology results, the need for outpatient follow up, to return to the emergency department if symptoms worsen or persist or if there are any questions or concerns that arise at home. Special discussion: I discussed with the patient/guardian in detail that at this point there is no indication for admission to the hospital. It is understood, however, that if the symptoms persist or worsen the patient needs to return immediately for re-evaluation. ED course: 2 mm stone at the left UVJ. Patient has felt marked decrease in pain. Reports pressure and pain are now gone. Likely dropped into the bladder. Will discharge home with pain medication as needed and return precautions.. 04/22 12:29 Order name: CBC with Diff rn 04/22 12:29 Order name: CMP rn 04/22 12:29 Order name: Lipase rn 04/22 12:29 Order name: Urinalysis w/ reflexes; Complete Time: 14:42 rn 04/22 14:36 Order name: Urine Culture EDCT 04/22 12:29 Order name: CT Stone Protocol; Complete Time: 13:28 rn 04/22 12:29 Order name: IV Saline Lock; Complete Time: 14:58 rn 04/22 12:29 Order name: Labs collected and sent; Complete Time: 14:58 rn Administered Medications: 14:57 Drug: morphine IVP or IV 4 mg IVP once over 4 mins Route: IVP; Infused Over: 4 mins; bp Site: right forearm; 16:17 Follow up: Response: No adverse reaction bp 14:57 Drug: Magnesium Sulfate IVPB 1 grams IVPB once over 1 hrs Route: IVPB; Infused Over: 1 bp hrs; Site: right forearm; 14:57 Drug: Flomax PO 0.4 mg PO once Route: PO; bp 16:17 Follow up: Response: No adverse reaction bp Disposition Summary: 04/22/24 16:33 Discharge Ordered Notes: Location: Home rn Problem: new rn Symptoms: have improved rn Condition: Stable rn Diagnosis - Calculus of ureter rn Followup: rn - With: Private Physician - When: As needed - Reason: Recheck today's complaints, Re-evaluation by your physician Discharge Instructions: - Discharge Summary Sheet rn - Kidney Stones rn - Renal Colic rn - Dietary Guidelines to Help Prevent Kidney Stones rn Forms: - Medication Reconciliation Form rn - Antibiotic transition rn - Prescription Opioid Use rn - Patient Portal Instructions rn - Leadership Thank You Letter rn Prescriptions: - Flomax 0.4 mg Oral capsule - take 1 capsule ORAL route every 24 hours As needed stop taking once you feel rn that you have passed your kidney stone; 10 capsule; Refills: 0, Product Selection Permitted - Cipro 500 mg Oral Tablet - take 1 tablet ORAL route every 12 hours for 7 days; 14 tablet; Refills: 0, rn Product Selection Permitted - Tramadol 50 mg Oral Tablet - take 1 tablet ORAL route every 8 hours as needed; 12 tablet; Refills: 0, rn Product Selection Permitted Signatures: Dispatcher [employer] Jacinto Farley MD MD rn Peltier, Brian RN Candace Ferris RN RN cm10
[2024-04-22 16:58] VITALS: TEMP 97; O2SAT 100
[2024-04-22 16:59] VITALS: BP 137/89
[2024-04-22 17:51] LABS: Anion Gap 8.1 mEq/L (5.0-15.0)
== END 2024-04-22 16:43 | disposition home or self-care (01) ==
LOC: ER 12:21
DX: N20.1 Calculus of ureter (principal)
CPT/HCPCS: 87088; 85025; 81001; 87086; 36415; 83690; 80053; 76377; 74176; 96375; 96374; 99284; J3475